=== PATIENT | female | born 1955 | race Caucasian/White ===

== ENCOUNTER → 2017-12-28 | Outpatient (CLI) | payer OTHER ==
--- NOTE | 2017-12-28 11:38 | Diagnostic Imaging Report ---
INDICATION: Routine screening. Comparison is made with prior mammograms from 08/12/2016 and 05/20/2015. The current study was also evaluated with a Computer Aided Detection (CAD) system. Both breasts demonstrate marked parenchymal heterogeneity and increased density, limiting the sensitivity of mammography. There is an approximately 16 mm circumscribed mass in the superior aspect of the right breast approximately 11 to 12 o'clock location 5-6 cm from the nipple. This may represent a cyst. The left breast is unremarkable. No spiculated mass is seen. There are benign calcifications. No malignant appearing microcalcifications are identified. The axillae are unremarkable. IMPRESSION: BI-RADS zero Circumscribed mass superior right breast 11 o'clock location posterior depth. Further evaluation with ultrasound is recommended. ACR BI-RADS Category 0: Incomplete. (Needs additional imaging evaluation). Result letter will be mailed to the patient. Note: At least 10% of breast cancer is not imaged by mammography. Dictated by: Dictated on workstation # [id number]
== END ==
LOC: RAD 10:19
PROVIDERS: ATTEND Nurse Practitioner
DX: Z12.31 Encounter for screening mammogram for malignant neoplasm of breast (principal); N63.11 Unspecified lump in the right breast, upper outer quadrant
CPT/HCPCS: 77067

== ENCOUNTER → 2018-01-11 | Outpatient (CLI) | payer OTHER ==
--- NOTE | 2018-01-11 14:41 | Diagnostic Imaging Report ---
INDICATION: Abnormal screening mammogram. This study was performed for further evaluation. COMPARISON: Recent screening mammogram from 12/28/2017. TECHNIQUE: Sonographic interrogation of the upper-outer right breast was performed. FINDINGS: There is a simple cyst at the 10:30 location 4 cm from the nipple measuring 1.6 x 1.3 x 1.9 cm. No internal vascularity is seen. There is posterior acoustic enhancement. No other abnormalities are detected. IMPRESSION: Simple cyst at the 10:30 location of the right breast corresponding to the circumscribed density on the recent mammogram. The patient may return to routine annual screening mammography. ACR BI-RADS Category 2: Benign findings. Dictated by: Dictated on workstation # [id number]
== END ==
LOC: RAD 12:51
PROVIDERS: ATTEND Nurse Practitioner
DX: N60.01 Solitary cyst of right breast (principal)

== ENCOUNTER → 2019-10-30 | Outpatient (CLI) | payer OTHER ==
--- NOTE | 2019-10-30 15:20 | Diagnostic Imaging Report ---
INDICATION: Screening for osteoporosis. COMPARISON: 06/06/2014. FINDINGS: The bone mineral density of the hips and spine was measured. This study was compared to the prior exam of 06/06/2014. The T-score for the spine is 2.1. On the prior exam, the T-score was 0.8. The total T-score for the left hip is 0.4 and for the right hip 0.5. On the prior exam, the T-scores for both hips were 0.3. The T-score for each femoral neck is -0.8. Previously, the T-score for the left femoral neck was -0.9 and for the right femoral neck -1.2. AP Spine L1-L4: [BMD (g/cm2): 1.456] [T-Score: 2.1] [Z-Score: 3.4] [BMD Previous: 1.295] [BMD % Change: 12.4] LT Hip Neck: [BMD (g/cm2): 0.931] [T-Score: -0.8] [Z-Score: 0.5] LT Hip Total: [BMD (g/cm2):1.059] [T-Score:0.4] [Z-Score: 1.4] [BMD Previous: 1.041] [BMD % Change: 1.7] RT Hip Neck: [BMD (g/cm2):0.926] [T-Score:-0.8] [Z-Score:0.5] RT Hip Total: [BMD (g/cm2):1.073] [T-score:0.5] [Z-Score:1.5] [BMD Previous:10.40] [BMD % Change:3.2] *Indicates significant change from prior examination based on 95% confidence level. World Health Organization criteria for BMD interpretation classify patients as Normal (T-score at or above -1.0), Osteopenic (T-score between -1.0 and -2.5) or Osteoporotic (T-score at or below -2.5). LIMITATIONS AND MODIFICATION: None. FRACTURE RISK (FRAX SCORE): The ten year probability of (%): Major Osteoporotic Fracture: [NA] Hip Fracture: [NA] IMPRESSION: 1. The bone mineral density of the hips, spine, and femoral necks have increased since the prior exam. All the T-score values are now within normal limits. 2. See below National Osteoporosis Foundation guidelines on when to potentially initiate pharmacologic therapy. Based on the National Osteoporosis Foundation Guidelines, pharmacologic treatment should be initiated in any of the following, unless clinical conditions suggest otherwise: * Any patient with prior fragility fracture of the hip or vertebrae. A spine fracture indicates 5X risk for subsequent spine fracture and 2X risk for subsequent hip fracture. * Osteoporosis (T-score <-2.5). * Postmenopausal women and men age 50 and older with low bone mass/osteopenia (T-score between -1.0 and -2.5) by DXA and 10-year major osteoporotic fracture greater than 20% or a 10-year probability of hip fracture greater than 3%. These fracture risks are supplied above in the FRAX score, if applicable. * Clinician judgment and/or patient preferences may indicate treatment for people with 10-year fracture probabilities above or below these levels. Dictated by: Dictated on workstation # [id number]
--- NOTE | 2019-10-30 16:20 | Diagnostic Imaging Report ---
INDICATION: Routine screening. COMPARISON: 12/28/2017 and 08/12/2016. TECHNIQUE: 2D and 3D bilateral screening mammography was performed with CAD. FINDINGS: Both breasts show marked parenchymal heterogeneity and increased density, limiting the sensitivity of mammography. The circumscribed mass previously noted in the upper right breast has resolved. The circumscribed lesion on the MLO view at posterior depth at the nipple line is noted, likely a cyst. This is approximately 7 cm deep to the nipple. No definite correlate on the CC view is seen. The left breast is unremarkable. There are benign calcifications. The axillae are unremarkable. IMPRESSION: Circumscribed density in the deep right breast approximately 7 cm deep to the nipple. Further evaluation with ultrasound is recommended. ACR BI-RADS Category 0: Incomplete. (Needs additional imaging evaluation). Result letter will be mailed to the patient. Note: At least 10% of breast cancer is not imaged by mammography. Dictated by: Dictated on workstation # [id number]
== END ==
LOC: RAD 13:43
PROVIDERS: ATTEND Obstetrics & Gynecology
DX: Z12.31 Encounter for screening mammogram for malignant neoplasm of breast (principal); Z13.820 Encounter for screening for osteoporosis; R92.8 Other abnormal and inconclusive findings on diagnostic imaging of breast; N95.1 Menopausal and female climacteric states; Z79.890 Hormone replacement therapy
CPT/HCPCS: 77067; 77080

== ENCOUNTER → 2019-11-08 | Outpatient (CLI) | payer OTHER ==
--- NOTE | 2019-11-08 14:00 | Diagnostic Imaging Report ---
PATIENT: Gabriela WELCH : 1955 EXAM: This is a right breast ultrasound INDICATION: Right breast density noted on recent screening study. CORRELATION is made with screening mammogram from 10/30/2019. There is a small cyst at the 10 o'clock location of the right breast, 6 cm from the nipple, measuring approximately 3 mm x 3 mm x 3 mm. A 2nd cyst is seen measuring 4 mm x 3 mm x 2 mm. This may account for the mammographic density. No solid lesions are seen. IMPRESSION: BI-RADS Category 2 Simple cyst 10 o'clock location of the right breast, likely accounting for the mammographic density. Patient may return to routine annual screening mammography. ACR BI-RADS Category 2: Benign findings. Result letter will be mailed to the patient. Note: At least 10% of breast cancer is not imaged by mammography. Dictated by: Dictated on workstation # [id number]
== END ==
LOC: RAD 10:46
PROVIDERS: ATTEND Obstetrics & Gynecology
DX: N60.01 Solitary cyst of right breast (principal)